=== PATIENT | female | born 1970 | race Caucasian/White ===

== ENCOUNTER 2017-10-06 14:33 | Emergency (ER) | payer BC, OTHER ==
[2017-10-06 15:01] VITALS: BP 121/69; PULSE 70; RESP 18; TEMP 97.8; O2SAT 100
--- NOTE | 2017-10-06 16:12 | ED PDOC ---
Lower Extremity Pain/Injury Time Seen by Provider: 10/06/17 14:46 Chief Complaint (Nursing): Lower Extremity Problem/Injury Chief Complaint (Provider): Right hip pain, lower back pain after fall last night History Per: Patient History/Exam Limitations: no limitations Onset/Duration Of Symptoms: Hrs Current Symptoms Are (Timing): Still Present Additional Complaint(s): 47 yo female presents with right hip, lower back and right knee pain s/p trip and fall after drinking last night. PT denies LOC. PT states she did hit face on ground and has superficial abrasion on bilateral palms. Pt denies headache, nausea or vomiting. Pt states when she bends at the waist she feels like her right hip is going to come out of the joint. Past Medical History Reviewed: Historical Data, Nursing Documentation, Vital Signs Vital Signs: Last Vital Signs Temp 97.8 F 10/06/17 14:37 Pulse 70 10/06/17 14:37 Resp 18 10/06/17 14:37 BP 121/69 10/06/17 14:37 Pulse Ox 100 10/06/17 14:37 - Medical History PMH: Migraine - Surgical History Surgical History: No Surg Hx - Family History Family History: States: No Known Family Hx - Living Arrangements Living Arrangements: With Family - Home Medications Home Medications: Ambulatory Orders Medication Instructions Recorded traMADol [Ultram] 50 mg PO Q6H PRN #15 tab 10/06/17 - Allergies Allergies/Adverse Reactions: Allergies Allergy/AdvReac Type Severity Reaction Status Date / Time No Known Allergies Allergy Verified 10/06/17 14:37 Review of Systems ROS Statement: Except As Marked, All Systems Reviewed And Found Negative Constitutional: Negative for: Fever, Chills Musculoskeletal: Positive for: Back Pain, Other Skin: Positive for: Other (Abrasion) Physical Exam - Reviewed Nursing Documentation Reviewed: Yes Vital Signs Reviewed: Yes - Physical Exam Appears: Positive for: Well, Non-toxic, No Acute Distress Head Exam: Positive for: ATRAUMATIC, NORMAL INSPECTION, NORMOCEPHALIC Skin: Positive for: Normal Color, Warm, DRY Eye Exam: Positive for: Normal appearance, EOMI, PERRL ENT: Positive for: Normal ENT Inspection Neck: Positive for: Normal, Painless ROM Cardiovascular/Chest: Positive for: Regular Rate, Rhythm Respiratory: Positive for: Normal Breath Sounds. Negative for: Accessory Muscle Use, Respiratory Distress Back: Positive for: Normal Inspection, Vertebral Tenderness (Lumbar region) Extremity: Positive for: Normal ROM, Other (Abrasion on right knee, bilateral palms ). Negative for: Deformity, Swelling Neurologic/Psych: Positive for: Alert, Oriented - ECG O2 Sat by Pulse Oximetry: 100 Medical Decision Making Medical Decision Making: LS and hip x-ray without acute fracture or dislocation. Disposition - Clinical Impression Clinical Impression: Right hip pain, Low back pain - Patient ED Disposition Is Patient to be Admitted: No Counseled Patient/Family Regarding: Diagnosis, Need For Followup, Rx Given - Disposition Disposition: Routine/Home Disposition Time: 16:11 Condition: GOOD Prescriptions: traMADol [Ultram] 50 mg PO Q6H PRN #15 tab PRN Reason: Pain Instructions: Hip Pain Forms: [employer] ([place]ian)
--- NOTE | 2017-10-06 16:24 | RAD ---
PROCEDURE: Lumbar spine 10/06/2017 HISTORY: Low back pain following fall. COMPARISON: Comparison made with CT scan abdomen pelvis 01/25/2013 which image the lumbar spine in 3 planes. FINDINGS: BONES: No acute compression fractures no retropulsed fragments. Vertebral bodies exhibit normal stature and alignment. Facets normally aligned. Disc space heights are DISC SPACES: There is degenerative spondylosis at the L5-S1 level which includes disc space narrowing, endplate eburnation with small amount of vacuum phenomena. Prominent anterior and smaller posterior osteophyte formation. Facets are slightly hypertrophic. There is minor posterior disc space narrowing at the L4-L5 level with hypertrophic facets. . The remaining levels exhibit adequate disc height. . OTHER FINDINGS: Metallic clips right upper quadrant of the abdomen consistent with prior cholecystectomy. Findings suggest mild constipation IMPRESSION: No acute fractures. Degenerative spondylosis most notably affecting the L5-S1 and to a lesser degree L4-L5 levels. .
--- NOTE | 2017-10-06 16:27 | RAD ---
PROCEDURE: Pelvis left hip HISTORY: low back pain COMPARISON: Correlation made with prior radiographs of the lumbar spine dated [address] scan abdomen pelvis 01/25/2013 which imaged the pelvis and right hip in 3 planes. TECHNIQUE: AP view of the pelvis and AP/ frogleg lateral views right hip performed. FINDINGS: No evidence of acute displaced fracture nor dislocation. The osseous structures appear intact. Both femoral heads appropriately located within the respective acetabula. Joint spaces preserved. IMPRESSION: No acute displaced fracture nor dislocation. . If symptoms persist, worsening or occult fracture suspected clinically, consider followup MRI.
== END 2017-10-06 16:17 | disposition home or self-care (01) ==
LOC: H.ER 14:33
DX: M54.5 Low back pain (principal); M25.551 Pain in right hip; W19.XXXA Unspecified fall, initial encounter; Y92.89 Other specified places as the place of occurrence of the external cause